=== PATIENT | male | born 2000 | race American Indian/Alaskan Native ===

== ENCOUNTER 2018-01-04 06:13 | Day surgery (SDC) | payer BC, MEDICAID ==
[2018-01-04] MEDS ORDERED: MINERAL OIL TOPICAL LIGHT TP ONE (07:23)
--- NOTE | 2018-01-04 07:26 | Anesthesia Day of Surgery ---
Anesthesia Day of Surgery - Day of Surgery Patient Examined: Yes Patient H&P Reviewed: Yes Patient is NPO: Yes
[2018-01-04] MEDS ORDERED: NACL BACTERIOSTATIC INFILTRATI ONE (07:35)
--- NOTE | 2018-01-04 07:38 | Anesthesia Day of Surgery ---
Anesthesia Day of Surgery - Day of Surgery Patient Examined: Yes Patient H&P Reviewed: Yes Patient is NPO: Yes Beta Blockers: Yes (metoprolol, 01/03 2pm)
--- NOTE | 2018-01-04 07:40 | Anesthesia Consultation ---
Anesthesia Consult and Med Hx Date of service: 01/04/18 - Airway Anesthetic Teeth Evaluation: Good ROM Head & Neck: Adequate Mental/Hyoid Distance: Adequate Mallampati Class: Class II Intubation Access Assessment: Probably Good - Pulmonary Exam CTA: Yes - Cardiac Exam Cardiac Exam: RRR - Pre-Operative Health Status ASA Pre-Surgery Classification: ASA2 Proposed Anesthetic Plan: General - Pulmonary Hx Asthma: Yes - Cardiovascular System Hx Cardia Arrhythmia: Yes (hx of tachycardia, takes metoprolol) - Central Nervous System Hx Psychiatric Problems: No - Hematic Hx Anemia: Yes - Other Systems Hx Alcohol Use: No Hx Substance Use: No Hx Cancer: No
[2018-01-04] MEDS ORDERED: DIPRIVAN 10 MG/ML IV ONE (07:42)
[2018-01-04] MEDS ORDERED: XYLOCAINE MPF 2% ONE (07:43)
[2018-01-04] MEDS ORDERED: NACL 0.9% 1000 ML 1,000 ML IV SCH (08:00)
[2018-01-04] MEDS ORDERED: VERSED IV NR (08:00)
[2018-01-04] MEDS ORDERED: PEPCID IV NR (08:00)
[2018-01-04] MEDS ORDERED: LEVAQUIN 500MG/100ML 500 MG/100 ML BAG IV ONE (08:15)
[2018-01-04] MEDS ORDERED: SUBLIMAZE ONE (08:28)
--- NOTE | 2018-01-04 08:34 | Discharge Summary ---
Short Stay Discharge Plan Activity: other (Limit LT Arm Strenuous Activity) Weight Bearing Status: Full Weight Bearing Wound: other (Dressing Removal in Clinic on 01/11/18) Follow up with: LISA DOMINGUEZ MD [Primary Care Provider] - 6 Weeks WORK,LENY Hyatt JR, MD [Staff Physician] - 7 Days Forms: [facility] DC Inst.
[2018-01-04 08:35] LABS: Hemoglobin 8.1 gm/dl (11.8-15.2)
--- NOTE | 2018-01-04 08:36 | Short Stay Summary ---
Short Stay Documentation Date of service: 01/04/18 - Allergies and Medications Current Medications: Allergies Penicillins Allergy (Verified 12/30/17 15:12) [place] [employer] CHILD Sulfa (Sulfonamide Antibiotics) Allergy (Verified 12/30/17 15:12) CECELIA COFFEY'S sulfamethoxazole [From Bactrim] Allergy (Verified 12/30/17 15:12) CECELIA COFFEY'S trimethoprim [From Bactrim] Allergy (Verified 12/30/17 15:12) CECELIA COFFEY'S Home Medications Medication Instructions Recorded Confirmed Last Taken Type Ascorbic Acid [Vitamin C] 250 mg PO BID 12/30/17 12/30/17 01/03/18 History Ferrous Sulfate [Feosol] 325 mg PO QDAY 12/30/17 12/30/17 01/03/18 History Metoprolol Succinate [Toprol Xl] 25 mg PO DAILY 12/30/17 12/30/17 01/03/18 History Active Medications Famotidine (Pepcid) 20 mg IV PREOP NR Stop: 01/04/18 12:00 Last Admin: 01/04/18 08:12 Dose: 20 mg Sodium Chloride (Nacl 0.9% 1000 Ml) 1,000 mls @ 100 mls/hr IV DIRECT ANGELINA Last Admin: 01/04/18 07:45 Dose: 100 mls/hr Levofloxacin/Dextrose (Levaquin 500mg/100ml) 500 mg in 100 mls @ 100 mls/hr IV PREOP NR; Protocol Stop: 01/04/18 12:00 Midazolam HCl (Versed) 2 mg IV PREOP NR Stop: 01/04/18 23:59 Last Admin: 01/04/18 08:14 Dose: 2 mg - Brief post op/procedure progress note Date of procedure: 01/04/18 Pre-op diagnosis: Open Wound of LT Axilla//Hidradenitis Post-op diagnosis: same Procedure: Tangential Excisional Prep 150cm2 STSG to LT [id number] Anesthesia: GETA Surgeon: LENY GORDON JR Estimated blood loss: minimal Pathology: none Condition: stable - Disposition Condition at discharge: Good Disposition: DC-01 TO HOME OR SELFCARE Short Stay Discharge Plan Follow up with: LENY GORDON JR, MD [Staff Physician] - 7 Days LISA DOMINGUEZ MD [Primary Care Provider] - 6 Weeks Forms: Outpatient Surgery DC Inst.
[2018-01-04] MEDS ORDERED: DILAUDID ONE (09:00)
[2018-01-04] MEDS ORDERED: LEVAQUIN 500MG/100ML 500 MG/100 ML BAG IV NR (09:00)
[2018-01-04] MEDS ORDERED: ZOFRAN ONE (09:23)
[2018-01-04] MEDS ORDERED: DECADRON ONE (09:23)
--- NOTE | 2018-01-04 11:51 | Operative Report ---
PREOPERATIVE DIAGNOSES: 1. Open wound, left axilla. 2. Hidradenitis suppurativa. POSTOPERATIVE DIAGNOSIS: 1. Open wound, left axilla. 2. Hidradenitis suppurativa. PROCEDURE: 1. Tangential excisional prep of left axilla approximately 150 square cm. 2. Split thickness skin graft to left axilla 150 square cm. SURGEON: Chance Phelan MD. DESCRIPTION OF PROCEDURE: The patient was brought to the operating room and placed on the table in supine position. Following administration of general anesthesia, the left arm and left thigh were prepped with Betadine solution, draped in usual sterile manner. A #10 blade scalpel was used to tangentially excise the left axillary wound down to healthy tissue followed by harvesting a split-thickness skin graft from the ipsilateral thigh using a Beatriz Brown dermatome fifteen one-thousandth of an inch meshed one and a half to one secured in place over the recipient site of the axilla using robert, covered by Xeroform gauze and a compressive dressing. The patient tolerated the procedure well and returned to recovery room in stable condition. JOB# [id number] FTW/NTS
[2018-01-04 11:57] VITALS: BP 127/83
--- NOTE | 2018-01-04 14:41 | Post Anesthesia Evaluation ---
- Post Anesthesia Evaluation Patient Participated: Yes Airway Patent: Yes Stable Respiratory Function: Yes Nausea/Vomiting: No Temp > 96.8F: Yes Pain Manageable: Yes Adequeate Hydration: Yes Anesthesia Complications: No
== END 2018-01-04 11:57 | disposition home or self-care (01) ==
LOC: OR 06:13
PROVIDERS: ATTEND Plastic Surgery
DX: S41.102A Unspecified open wound of left upper arm, initial encounter (principal); L73.2 Hidradenitis suppurativa; J45.909 Unspecified asthma, uncomplicated; Z88.0 Allergy status to penicillin; Z88.2 Allergy status to sulfonamides; Z88.1 Allergy status to other antibiotic agents; X58.XXXA Exposure to other specified factors, initial encounter; Y93.89 Activity, other specified; Y92.89 Other specified places as the place of occurrence of the external cause; Y99.8 Other external cause status
CPT/HCPCS: 15002; 15003; 15100; 15101; 36415; 85014; 85018; J1100; J1170; J1956; J2250; J2405; J2704; J3010; J7030